=== PATIENT | male | born 1995 | race Caucasian/White ===

== ENCOUNTER 2017-01-22 16:42 | Emergency (ER) | payer OTHER ==
[~2017-01-22] VITALS: Ht 195.6 cm; Wt 79.4 kg
[2017-01-22 16:57] VITALS: BP 144/85
--- NOTE | 2017-01-22 17:25 | NUR ---
Patient to bed 08.
--- NOTE | 2017-01-22 17:37 | NUR ---
XRAY at bedside.
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
--- NOTE | 2017-01-22 17:45 | NUR ---
Dr. Portillo at bedside to evaluate patient.
[2017-01-22] MEDS ORDERED: LIDOCAINE 1% 500 MG/50 ML VIAL INJ ONE (17:50)
[2017-01-22] MEDS ORDERED: BACITRACIN OINT 500 UNITS/GM PKT TP ONE (19:18)
--- NOTE | 2017-01-22 19:20 | NUR ---
Patient discharged with v/s stable. Written and verbal after care instructions given and explained. Patient alert, oriented and verbalized understanding of instructions. Ambulatory with steady gait. All questions addressed prior to discharge. ID band removed. Patient advised to follow up with PMD. Rx of KEFLEX AND NORCO given. Patient educated on indication of medication including possible reaction and side effects. Opportunity to ask questions provided and answered.
[2017-01-22 19:29] VITALS: BP 128/80
== END 2017-01-22 19:20 | disposition home or self-care (01) ==
LOC: MED 16:42
DX: R50.9 Fever, unspecified (principal); M79.1 Myalgia; R51 Headache; R11.2 Nausea with vomiting, unspecified
CPT/HCPCS: 73140; 99284; J2001; Q0092

== ENCOUNTER 2017-07-14 20:33 | Emergency (ER) | payer OTHER ==
[~2017-07-14] VITALS: Ht 195.6 cm; Wt 79.4 kg
[2017-07-14 21:05] VITALS: BP 135/66
--- NOTE | 2017-07-14 21:42 | NUR ---
PATIENT AMBULATED TO ER OF2.
--- NOTE | 2017-07-14 22:00 | NUR ---
PATIENT BEING EVALUATED BY DR. DOSS.
[2017-07-14 22:40] VITALS: BP 127/65
--- NOTE | 2017-07-14 22:40 | NUR ---
Patient discharged with v/s stable. Written and verbal after care instructions given and explained. Patient alert, oriented and verbalized understanding of instructions. Ambulatory with steady gait. All questions addressed prior to discharge. ID band removed. Patient advised to follow up with PMD. Rx of Medrol dose pack and Augmentin given. Patient educated on indication of medication including possible reaction and side effects. Opportunity to ask questions provided and answered.
== END 2017-07-14 22:40 | disposition home or self-care (01) ==
LOC: MED 20:33
DX: J02.9 Acute pharyngitis, unspecified (principal); R03.0 Elevated blood-pressure reading, without diagnosis of hypertension
CPT/HCPCS: 99283